=== PATIENT | male | born 1955 | race Caucasian/White ===

== ENCOUNTER → 2021-03-19 08:14 | Outpatient (BNVA) | payer MEDICARE, SELFPAY | PROVIDERS: Family Provider Family Medicine; PCP Family Medicine; Referring Provider Family Medicine; Visit Provider Urology | DX: R97.20 Elevated prostate specific antigen [PSA] (principal) | CPT/HCPCS: 81003 ==

== ENCOUNTER → 2021-06-19 08:02 | Outpatient (BNVA) | payer MEDICARE, SELFPAY | PROVIDERS: Family Provider Family Medicine; PCP Family Medicine; Visit Provider Urology | DX: R97.20 Elevated prostate specific antigen [PSA] (principal); N39.9 Disorder of urinary system, unspecified | CPT/HCPCS: 81003; 84153 ==

== ENCOUNTER → 2021-10-24 10:36 | Outpatient (BNVA) | payer MEDICARE, SELFPAY | PROVIDERS: PCP Family Medicine; Visit Provider Urology | DX: R97.20 Elevated prostate specific antigen [PSA] (principal) | CPT/HCPCS: 81003 ==

== ENCOUNTER 2022-04-03 08:27 | Outpatient (CLI) | payer MEDICARE, SELFPAY ==
--- NOTE | 2022-04-03 09:08 | NM_ITS ---
WS: [id number] NUCLEAR MEDICINE BONE SCAN Radiopharmaceutical: 24.6 Tc-99m MDP mCi IV Injection site: antecubital Postinjection imaging delay: 1 hr CLINICAL INFORMATION: MALIGNATE NEOPLASM OF PROSTATE COMPARISON: None. FINDINGS: Bone lesions: There are no osseous lesions suspicious for metastatic disease. Soft tissue contours: Normal. Kidneys: Normal. Other findings: Thoracolumbar curve with degenerative uptake at the thoracolumbar junction. Degenerat celestina uptake in the AC joints and both knees. NM/NM bone scan whole body* [id number] IMPRESSION: No evidence of osseous metastatic disease.
== END 2022-04-03 08:28 | disposition home or self-care (01) ==
LOC: RAD 08:30
PROVIDERS: PCP Family Medicine; Visit Provider Urology
DX: C61 Malignant neoplasm of prostate (principal)
CPT/HCPCS: 78306; A9561

== ENCOUNTER → 2023-06-02 13:39 | Outpatient (BNVA) | payer MEDICARE, SELFPAY | PROVIDERS: PCP Family Medicine; Referring Provider Family Medicine; Visit Provider Dermatology | DX: L91.8 Other hypertrophic disorders of the skin (principal) | CPT/HCPCS: 11200; 17000; 17003; 99203 ==

== ENCOUNTER → 2023-11-20 09:14 | Outpatient (BNVA) | payer MEDICARE, SELFPAY | PROVIDERS: PCP Family Medicine; Visit Provider Nurse Practitioner Family | DX: L57.0 Actinic keratosis (principal); L82.1 Other seborrheic keratosis; B35.1 Tinea unguium | CPT/HCPCS: 17000; 99214 ==

== ENCOUNTER → 2024-05-16 12:56 | Outpatient (BNVA) | payer MEDICARE, SELFPAY | PROVIDERS: PCP Family Medicine; Visit Provider Nurse Practitioner Family | DX: L57.0 Actinic keratosis (principal); L82.1 Other seborrheic keratosis; D18.01 Hemangioma of skin and subcutaneous tissue; S30.860A Insect bite (nonvenomous) of lower back and pelvis, initial encounter; X58.XXXA Exposure to other specified factors, initial encounter | CPT/HCPCS: 17000; 99213 ==

== ENCOUNTER → 2024-10-26 10:34 | Outpatient (BNVA) | payer MEDICARE, SELFPAY | PROVIDERS: PCP Family Medicine; Visit Provider Nurse Practitioner Family | DX: L82.1 Other seborrheic keratosis (principal); D18.01 Hemangioma of skin and subcutaneous tissue; L44.8 Other specified papulosquamous disorders; L81.0 Postinflammatory hyperpigmentation; L57.0 Actinic keratosis | CPT/HCPCS: 17000; 99213 ==

== ENCOUNTER → 2025-04-26 10:26 | Outpatient (BNVA) | payer MEDICARE, SELFPAY | PROVIDERS: PCP Family Medicine; Visit Provider Nurse Practitioner Family | DX: S80.862A Insect bite (nonvenomous), left lower leg, initial encounter (principal); X58.XXXA Exposure to other specified factors, initial encounter; D18.01 Hemangioma of skin and subcutaneous tissue; L57.0 Actinic keratosis; L82.0 Inflamed seborrheic keratosis; L29.89 Other pruritus; L53.8 Other specified erythematous conditions; Z78.9 Other specified health status | CPT/HCPCS: 17004; 17110; 99213 ==

== ENCOUNTER → 2025-10-30 07:59 | Outpatient (BNVA) | payer MEDICARE, SELFPAY | PROVIDERS: PCP Family Medicine; Visit Provider Nurse Practitioner Family | DX: L57.0 Actinic keratosis (principal); L82.1 Other seborrheic keratosis; D18.01 Hemangioma of skin and subcutaneous tissue | CPT/HCPCS: 17000; 99213 ==